=== PATIENT | female | born 1975 | race Caucasian/White ===

== ENCOUNTER 2025-03-10 07:30 | Day surgery (SDC) | payer BC, MEDICAID, SELFPAY ==
--- NOTE | 2025-03-09 06:53 | EKG_ITS ---
[facility] Test Date: 2025-03-09 Pat Name: JOHNNA GUERRERO Department: Room: - Gender: Female [employer]: NOVA : 1975 Requested By: Siva Padilla Order Number: [id number] Reading MD: Siva Padilla Measurements Intervals [place] Rate: 71 P: 49 AK: 185 QRS: 2 QRSD: 80 T: 34 QT: 327 QTc: 356 Interpretive Statements SINUS RHYTHM LOW QRS VOLTAGE IN PRECORDIAL LEADS [QRS DEFLECTION < 1.0 mV IN CHEST LEADS] NONSPECIFIC ST & T-WAVE ABNORMALITY No previous ECG available for comparison /[id number]/[email or web address]/[id number]
[2025-03-09 10:34] VITALS: BMI 40.8
[2025-03-10] VITALS (8 sets, daily range): BP systolic 117–145; BP diastolic 58–102; PULSE 82–92; RESP 14–20; TEMP 36–37.2; O2SAT 95–98; BMI 40.9
[2025-03-10] MEDS: RINGERS LACTATED 1000 ML 1,000 ML 20 ML IV (08:12)
--- NOTE | 2025-03-10 10:11 | PD.SUROPNT ---
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 The ossicular chain was intact and mobile. No signs of acute infection. Chorda tympani nerve was identified and preserved. Procedure Description Indications: This is a 49-year-old female with perforation as described above. Treatment options were discussed she wished to proceed with surgical repair. The risk of bleeding infection hearing loss decreased sense of taste tinnitus and potential need for further surgery were discussed. Anticipated outcomes were discussed as well. Patient is aware that this will not resolve all of her hearing loss. Patient was marked and shaved in the preoperative setting and transferred to the operative suite where she is anesthetized intubated sterilely prepped and draped. Timeout was performed. Ear canal was irrigated with warm saline solution and suctioned and injected with 1% lidocaine with 1-100,000 Maximo epinephrine. Postauricular area was injected as well. Approximately 3 cc total were used. The tympanic membrane was visualized with the operative microscope and the margins were prepped. The tympanic membrane anterior the perforation and the squamous epithelium elevated off with the joint knife. Posterior tympanomeatal flap was then created and the drum was elevated off the long process of the malleus. Postauricular incision was then made and the soft tissue dissected off of the temporalis fascia. A portion of the fascia was then harvested and pressed and dried. Surgifoam dipped in saline was then placed in the middle ear space anteriorly. The drum was turned forward and the graft was brought into position and pulled through the perforation anteriorly and then draped onto the anterior portion of the tympanic membrane. It was tucked posteriorly between the tympanic membrane and the malleus and then folded forward. The remainder of the middle ear is packed with Surgifoam. The graft and the posterior tympanomeatal flap were then draped back onto the posterior canal wall. The position anteriorly was reassessed and found to be good. Surgifoam dipped in saline was then packed on top of the graft and the tympanic membrane. Antibiotic ointment was then placed on top of that. Sterile cottonball was placed in the external canal. Postauricular incision was closed with 4-0 Vicryl and then Dermabond. Patient was awakened and taken to recovery room in stable condition Anesthesia GETA Pathology / specimen None Estimated Blood Loss 2 Surgeon Siva Flores DO Surgical Staff Operation Date: 03/10/25 09:20 Case Staff Anesthesiologist: Melquiades Jimenez
--- NOTE | 2025-03-10 10:18 | SUR.PHASEI ---
pt arrived to PACU via gurney with oral airway present, breathing unlabored, dressing to left ear clean, dry, and intact, report from Lane AVILEZ and Dr Jimenez
--- NOTE | 2025-03-10 10:45 | SUR.PHASEI ---
pt tolerating ice chips without difficulty swallowing or n/v
[2025-03-10] MEDS: ONDANSETRON INJ 2 MG/ML INJ 2 ML 4 MG IVP (11:14)
--- NOTE | 2025-03-10 11:28 | SUR.PHASEII ---
pt awake, alert, able to follow commands, breathing unlabored, dressing to left ear clean, dry, and intact, discharge instructions given with mother present-all questions answered, pt and mother verbalize understanding of discharge instructions, pt able to dress self and ambulate with steady gait to wheelchair, pt discharged via wheelchair with all belongings and copies of discharge paperwork.
== END 2025-03-10 11:28 | disposition home or self-care (01) ==
PROVIDERS: PCP Registered Nurse; Referring Provider Otolaryngology; Visit Provider Otolaryngology
PROC: (CPT 69631; principal; 2025-03-10 09:05)
DX: H72.2X2 Other marginal perforations of tympanic membrane, left ear (principal); H90.A32 Mixed conductive and sensorineural hearing loss, unilateral, left ear with restricted hearing on the contralateral side; Z01.810 Encounter for preprocedural cardiovascular examination
CPT/HCPCS: 69631; 81025; 93005; A4217; A4649; J0171; J0690; J1100; J2371; J2405; J2704; J2765; J3010; J3473; J3490; J7120; A9270